=== PATIENT | female | born 2000 | race African-American/Black ===

== ENCOUNTER 2020-09-29 10:51 | Emergency (ER) | payer MEDICAID ==
[~2020-09-29] VITALS: Ht 170.2 cm; Wt 66.0 kg
[2020-09-29] MEDS ORDERED: ACETAMINOPHEN 325MG TABLET PO PRN (11:30)
[2020-09-29 11:46] LABS: HEMATOCRIT. 25.1 % (36.0-48.0); HEMOGLOBIN. 7.8 g/dL (12.0-16.0); MEAN CORPUSCULAR HEMOGLOBIN 18.8 pg (28.0-32.0); MEAN CORPUSCULAR VOLUME 60.2 fL (81.0-99.0); MEAN PLATELET VOLUME 9.5 fl (7.4-10.4); PLATELET 224 x1000/uL (130-400); RED BLOOD CELL COUNT 4.17 mill/uL (4.2-5.4); RED CELL DISTRIBUTION WIDTH 23.5 % (11.6-14.6)
[2020-09-29 11:56] LABS: CHLORIDE 106 mEq/L (98-107)
[2020-09-29 12:11] LABS: CLARITY URINE CLOUDY (CLEAR); COLOR URINE YELLOW (YELLOW); KETONES URINE TRACE (NEGATIVE); LEUKOCYTE ESTERASE URINE NEGATIVE (NEGATIVE); NITRITE URINE NEGATIVE (NEGATIVE); OCCULT BLOOD URINE 3+ (NEGATIVE); PH URINE 6.5 (4.5-8.0); PROTEIN URINE 3+ (NEGATIVE); SPECIFIC GRAVITY URINE 1.026 (1.005-1.030); UROBILINOGEN URINE 0.2 E.U./dL (0.2-1.0)
[2020-09-29 12:31] LABS: B-HCG QUANTITATIVE 74186 mIU/mL (<3)
[2020-09-29 12:32] LABS: PLATELET ESTIMATE NORMAL
[2020-09-29] MEDS ORDERED: PNV1TABL55 MT (13:56)
[2020-09-29] MEDS ORDERED: NITR-87 MT (14:01)
[2020-09-29 14:41] VITALS: BP 115/72
== END 2020-09-29 16:37 | disposition home or self-care (01) ==
LOC: ER 11:57
DX: O20.0 Threatened abortion (principal); O23.31 Infections of other parts of urinary tract in pregnancy, first trimester; O99.011 Anemia complicating pregnancy, first trimester; Z3A.11 11 weeks gestation of pregnancy
CPT/HCPCS: 36415; 76801; 80053; 81003; 84702; 85025; 86850; 86900; 93005; 99285

== ENCOUNTER 2020-11-16 14:29 | Emergency (ER) | payer MEDICAID ==
[~2020-11-16] VITALS: Ht 170.2 cm; Wt 56.0 kg
[~2020-11-16 14:29] MED LIST: NITR-87 MT; PNV1TABL55 MT
[2020-11-16 15:41] LABS: CHLORIDE 107 mEq/L (98-107)
[2020-11-16 16:06] LABS: B-HCG QUANTITATIVE 12406 mIU/mL (<3)
[2020-11-16 19:47] VITALS: BP 105/52
== END 2020-11-16 19:49 | disposition home or self-care (01) ==
LOC: ER 14:29
DX: O26.892 Other specified pregnancy related conditions, second trimester (principal); O20.0 Threatened abortion; Z3A.18 18 weeks gestation of pregnancy
CPT/HCPCS: 36415; 76805; 80053; 84702; 99284